=== PATIENT | female | born 1955 | race Caucasian/White ===

== ENCOUNTER 2016-10-04 05:27 | Observation (INO) | payer OTHER, MEDICAID ==
[~2016-10-04] VITALS: Ht 162.6 cm; Wt 103.5 kg
[~2016-10-04 05:27] MED LIST: ASPI-119 PO; ATOR10TA15 PO; BUPR75TA PO; BUSP10TA PO; CLON.5 PO; FERR325T8 PO; FLUO10TA PO; GABA100C4 PO; HUMU70IN SQ; ISOS60TA PO; LAMO100T PO; LEVO50TA4 PO; LISI-515 PO; METF500T4 PO; METO25TA3 PO; NOVOLOGP2 SQ; OMEP40CA2 PO; POTA8CAP PO; QUET5TAB PO; VITA2000 PO
[2016-10-04] MEDS ORDERED: metroNIDAZOLE 500 MG INJ 100 ML IV SCH (06:00)
[2016-10-04] MEDS ORDERED: HEPARIN SODIUM - SQ 10,000 UNITS/ML VIAL SQ SCH (06:00)
[2016-10-04] MEDS ORDERED: LEVOFLOXACIN 500 MG PREMIX INJ 100 ML IV SCH (06:00)
[2016-10-04] MEDS ORDERED: INSULIN HUMAN REGULAR 1,000 UNITS/10 ML VIAL SQ PRN (06:15)
[2016-10-04] MEDS ORDERED: METOPROLOL TARTRATE 25 MG TAB PO PRN (06:15)
[2016-10-04] MEDS ORDERED: POVIDONE IODINE 5% (ANTISEPSIS KIT) 4 APPLICATIONS EACH NARE PRN (06:15)
[2016-10-04] MEDS ORDERED: LACTATED RINGER'S 1000 ML IV PRN (06:15)
[2016-10-04] MEDS ORDERED: SODIUM CHLORID 0.9% 500 ML IV PRN (06:15)
[2016-10-04] MEDS ORDERED: CHLORHEXIDINE GLUCONATE 2 % 1 PACK (2 CLOTHS) TOPICAL PRN (06:15)
[2016-10-04 06:21] VITALS: BP 142/79; PULSE 77; RESP 18; TEMP 98.3; O2SAT 94
[2016-10-04] MEDS ORDERED: MIDAZOLAM HCL 2 MG/2 ML VIAL ONE (07:18)
[2016-10-04] MEDS ORDERED: ACETAMINOPHEN 1000 MG/100 ML VIAL IV ONE (07:18)
[2016-10-04] MEDS ORDERED: fentaNYL CITRATE 250 MCG/5 ML AMP ONE ×2 (07:18→10:50)
[2016-10-04] MEDS ORDERED: ARTIFICIAL TEARS OPTH OINT 3.5 APPLIC/3.5 GM TUBO ONE (07:18)
[2016-10-04] MEDS ORDERED: SUGAMMADEX SODIUM 200 MG/2 ML VIAL IV PUSH ONE ×2 (07:19)
[2016-10-04] MEDS ORDERED: HYDROmorphone HCL PF 2 MG/ML VIAL ONE (07:19)
[2016-10-04] MEDS ORDERED: APREPITANT 40 MG CAP ONE (07:19)
[2016-10-04] MEDS ORDERED: DEXAMETHASONE SOD PHOS 4 MG/ML VIAL ONE (07:19)
[2016-10-04] MEDS ORDERED: LIDOCAINE 1%/EPINEPHrine 1:100,000 SOLN 30 ML VIAL INFIL ONE (08:42)
[2016-10-04] MEDS ORDERED: SODIUM CHLORIDE 0.9% FLUSH 10 ML FLUSH IV FLUSH PRN (10:30)
[2016-10-04] MEDS ORDERED: ONDANSETRON HCL 4 MG/2 ML VIAL IVP PRN (10:30)
[2016-10-04] MEDS ORDERED: oxyCODONE/ACETAMINOPHEN 5 MG/325 MG TAB PO PRN (10:30)
[2016-10-04] MEDS ORDERED: KETOROLAC TROMETHAMINE 30 MG/ML (IVP) VIAL IVP SCH (10:30)
[2016-10-04] MEDS ORDERED: DO NOT ADM ANY ANTICOAGULANT DRUGS PRN (10:37)
[2016-10-04] MEDS: D5-1/2 NS + KCL 20 MEQ INJ 1,000 ML IV SCH (11:02)
[2016-10-04 11:27] LABS: AUTOMATED NEUTROPHIL # 4.5 TH/MM3 (1.8-7.7); BASOPHIL % 0.6 % (0.0-2.0); EOSINOPHIL # 0.1 TH/MM3 (0-0.4); EOSINOPHIL % 2.1 % (0.0-4.0); HEMATOCRIT 34.7 % (35.0-46.0); HEMO FLAGS DIFF FINAL; LYMPH % 13.7 % (9.0-44.0); LYMPHOCYTE # 0.8 TH/MM3 (1.0-4.8); MEAN CELL VOLUME 93.2 FL (80.0-100.0); MEAN CORPUSCULAR HEMOGLOBIN 31.3 PG (27.0-34.0); MEAN CORPUSCULAR HGB CONC 33.6 % (32.0-36.0); MONO % 4.1 % (0.0-8.0); NEUT % 79.5 % (16.0-70.0); PLATELET COUNT 147 TH/MM3 (150-450); RED BLOOD COUNT 3.73 MIL/MM3 (4.00-5.30); RED CELL DISTRIBUTION WIDTH 15.4 % (11.6-17.2); WHITE BLOOD COUNT 5.6 TH/MM3 (4.0-11.0)
[2016-10-04] MEDS ORDERED: *RESP: ALBUTEROL 2.5 MG/3 ML NEB (PRN) PERIprocedural Use ONLY NEB ONE (11:46)
[2016-10-04] MEDS ORDERED: PROPOFOL 200 MG/20 ML AMP IV ONE (12:00)
[2016-10-04] MEDS ORDERED: ePHEDrine/NS 25 MG/5 ML SYR IV ONE (12:00)
[2016-10-04] MEDS ORDERED: VECURONIUM BROMIDE 10 MG VIAL IV ONE (12:00)
[2016-10-04] MEDS ORDERED: KETOROLAC TROMETHAMINE 60 MG/2 ML (IM) VIAL IM ONE (12:00)
[2016-10-04] MEDS ORDERED: ONDANSETRON HCL 4 MG/2 ML VIAL IV PUSH ONE (12:00)
[2016-10-04] MEDS ORDERED: NORMOSOL R INJ 1,000 ML IV ONE (12:00)
[2016-10-04] MEDS ORDERED: PILL SPLITTER OTHER PRN (12:00)
[2016-10-04] MEDS ORDERED: PHENYLEPH/NS 1000 MCG/10 ML SYR IV ONE (12:00)
[2016-10-04] MEDS: INSULIN NovoLIN REGULAR SUPPLEMENTAL SCALE SQ SCH ×3 (12:49→22:52)
[2016-10-04] MEDS ORDERED: *LABETALOL HCL 100 MG/20 ML VIAL PERIprocedural Use ONLY ONE (13:02)
[2016-10-04 13:43] VITALS: BP 152/90; PULSE 92; RESP 20; TEMP 98.5; O2SAT 94
[2016-10-04] MEDS: oxyCODONE/ACETAMINOPHEN 5 MG/325 MG TAB PO PRN (14:44)
--- NOTE | 2016-10-04 16:13 | PD.ONC.PN ---
Subjective Subjective Remarks post op note pt is resting in bed she is teary eyed states she is going through a depression, she is under the care of Dr. Peck, psychiatrist in [place] She denies wanting to harm herself She states she was just given pain medication 1/2 hour ago for her abdominal pain she is eating jello and drinking coffee denies any n/v Objective Data Date Time Temp Pulse Resp B/P Pulse Ox O2 Delivery O2 Flow Rate FiO2 10/04/16 13:43 98.5 92 20 152/90 94 10/04/16 13:10 99.0 92 16 141/70 96 Nasal Cannula 3 10/04/16 13:00 92 20 176/86 95 Nasal Cannula 3 10/04/16 12:45 97 20 178/98 93 Nasal Cannula 3 10/04/16 12:30 88 14 175/96 92 Nasal Cannula 3 10/04/16 12:15 89 14 168/83 92 Nasal Cannula 3 10/04/16 12:00 90 12 168/91 97 Nasal Cannula 3 10/04/16 11:45 87 15 174/88 97 Nasal Cannula 3 10/04/16 11:30 88 15 173/81 96 Nasal Cannula 3 10/04/16 11:15 87 18 170/96 96 Simple Mask 6 10/04/16 11:00 86 15 168/89 95 Simple Mask 6 10/04/16 10:45 88 12 168/88 95 Simple Mask 6 10/04/16 10:36 98.0 90 12 145/65 95 Simple Mask 6 10/04/16 06:21 98.3 77 18 142/79 94 10/04/16 10/04/16 10/04/16 07:00 15:00 23:00 Intake Total 1947 ml Output Total 200 ml Balance 1747 ml Result Diagram: 10/04/16 1056 Laboratory Results Laboratory Tests Test 10/04/16 10/04/16 06:05 10:56 Blood Type A POSITIVE Antibody Screen NEGATIVE Blood Bank Comment White Blood Count 5.6 TH/MM3 Red Blood Count 3.73 MIL/MM3 Hemoglobin 11.7 GM/DL Hematocrit 34.7 % Mean Corpuscular Volume 93.2 FL Mean Corpuscular Hemoglobin 31.3 PG Mean Corpuscular Hemoglobin 33.6 % Concent Red Cell Distribution Width 15.4 % Platelet Count 147 TH/MM3 Mean Platelet Volume 10.2 FL Neutrophils (%) (Auto) 79.5 % Lymphocytes (%) (Auto) 13.7 % Monocytes (%) (Auto) 4.1 % Eosinophils (%) (Auto) 2.1 % Basophils (%) (Auto) 0.6 % Neutrophils # (Auto) 4.5 TH/MM3 Lymphocytes # (Auto) 0.8 TH/MM3 Monocytes # (Auto) 0.2 TH/MM3 Eosinophils # (Auto) 0.1 TH/MM3 Basophils # (Auto) 0.0 TH/MM3 CBC Comment DIFF FINAL Differential Comment Administered Medications Medications (Trade) Dose Ordered Sig/[place] Route PRN Reason Start Time Stop Time Status Last Admin Dose Admin Lactated Ringer's 1,000 ml @ 30 mls/hr Q24H PRN IV SEE LABEL COMMENTS 10/04/16 06:15 10/07/16 06:14 10/04/16 06:15 Potassium Chloride/Dextrose/ Sod Cl (D5-1/2 NS + KCl 20 Meq Inj) 1,000 ml @ 75 mls/hr [id number] IV 10/04/16 11:00 10/04/16 11:02 Oxycodone/ Acetaminophen (Percocet 5-325 Mg) 2 tab Q4H PRN PO PAIN SCALE 6 TO 10 10/04/16 10:30 10/04/16 14:44 Objective Remarks GENERAL: Well-nourished, well-developed patient. SKIN: Warm and dry. HEAD: Normocephalic. EYES: No scleral icterus. No injection or drainage. NECK: Supple, trachea midline CARDIOVASCULAR: Regular rate and rhythm without murmurs. RESPIRATORY: Breath sounds equal bilaterally. No accessory muscle use. GASTROINTESTINAL: SS are c/d/i mild ecchymosis to midline incision with mild swelling to site. EXTREMITIES: No cyanosis, or edema. teds and scds MUSCULOSKELETAL: Adequate muscle tone. NEUROLOGICAL: No obvious focal deficit. Awake, alert, and oriented x3. PSYCHIATRIC: teary eyed Assessment/Plan Problem List: (1) Post-operative state Status: Acute Plan: s/p RA lap for BSO and resection of pelvic masses frozen section appear benign orders per EMR continue to monitor abd, OK to get repeat H/H armas patent Percocet for pain d/c armas in am and anticipate d/c home tomorrow Geraldo Mendoza [facility] Oct 04, 2016 16:13
[2016-10-04 16:39] VITALS: O2SAT 92
[2016-10-04 16:49] VITALS: BP 170/87; PULSE 92; RESP 20; TEMP 99.1; O2SAT 93
[2016-10-04 19:23] VITALS: O2SAT 92
[2016-10-04] MEDS: METOPROLOL TARTRATE 25 MG TAB PO SCH (19:34)
[2016-10-04 20:35] VITALS: BP 156/81; PULSE 85; RESP 18; TEMP 97.5; O2SAT 94
[2016-10-04] MEDS ORDERED: QUEtiapine FUMARATE 25 MG TAB PO SCH (21:00)
[2016-10-04] MEDS ORDERED: GABAPENTIN 100 MG CAP PO SCH (21:00)
[2016-10-04] MEDS ORDERED: lamoTRIgine 100 MG TAB PO SCH (21:00)
[2016-10-04] MEDS: busPIRone HCL 10 MG TAB PO SCH (22:47)
[2016-10-04] MEDS: clonazePAM 0.5 MG TAB PO SCH (22:47)
[2016-10-04] MEDS: SODIUM CHLORIDE 0.9% FLUSH 10 ML FLUSH IV FLUSH SCH (22:47)
[2016-10-05] VITALS: BP 118/82; PULSE 80; RESP 17; TEMP 97.8; O2SAT 94
[2016-10-05] MEDS: D5-1/2 NS + KCL 20 MEQ INJ 1,000 ML IV SCH (00:48)
[2016-10-05 04:00] VITALS: BP 139/80; PULSE 70; RESP 18; TEMP 97.1; O2SAT 95
[2016-10-05] MEDS: oxyCODONE/ACETAMINOPHEN 5 MG/325 MG TAB PO PRN (05:40)
[2016-10-05] MEDS: INSULIN NovoLIN REGULAR SUPPLEMENTAL SCALE SQ SCH (05:48)
[2016-10-05] MEDS ORDERED: LEVOTHYROXINE SODIUM 50 MCG TAB PO SCH (06:00)
[2016-10-05 07:44] VITALS: O2SAT 96
[2016-10-05] MEDS: clonazePAM 0.5 MG TAB PO SCH (07:57)
[2016-10-05] MEDS: METOPROLOL TARTRATE 25 MG TAB PO SCH (07:57)
[2016-10-05 08:00] VITALS: BP 155/89; PULSE 68; RESP 18; TEMP 97.6; O2SAT 92
[2016-10-05] MEDS: SODIUM CHLORIDE 0.9% FLUSH 10 ML FLUSH IV FLUSH SCH (08:00)
[2016-10-05] MEDS: busPIRone HCL 10 MG TAB PO SCH (08:00)
[2016-10-05 08:01] LABS: AUTOMATED NEUTROPHIL # 4.7 TH/MM3 (1.8-7.7); BASOPHIL % 0.4 % (0.0-2.0); EOSINOPHIL # 0.1 TH/MM3 (0-0.4); EOSINOPHIL % 0.8 % (0.0-4.0); HEMATOCRIT 33.2 % (35.0-46.0); HEMO FLAGS DIFF FINAL; LYMPH % 17.3 % (9.0-44.0); LYMPHOCYTE # 1.1 TH/MM3 (1.0-4.8); MEAN CELL VOLUME 91.9 FL (80.0-100.0); MEAN CORPUSCULAR HEMOGLOBIN 31.1 PG (27.0-34.0); MEAN CORPUSCULAR HGB CONC 33.8 % (32.0-36.0); NEUT % 73.5 % (16.0-70.0); PLATELET COUNT 124 TH/MM3 (150-450); RED BLOOD COUNT 3.62 MIL/MM3 (4.00-5.30); RED CELL DISTRIBUTION WIDTH 15.2 % (11.6-17.2); WHITE BLOOD COUNT 6.5 TH/MM3 (4.0-11.0)
[2016-10-05 08:22] LABS: BICARBONATE 23.8 MEQ/L (21.0-32.0); POTASSIUM 3.4 MEQ/L (3.5-5.1)
[2016-10-05] MEDS ORDERED: OXYC1TAB63 PO (08:27)
[2016-10-05] MEDS ORDERED: POTASSIUM CHLORIDE 20 MEQ CONTROLLED RELEASE TAB PO ONE (08:30)
[2016-10-05] MEDS ORDERED: PANTOPRAZOLE SOD 40 MG DELAYED RELEASE TAB PO SCH (09:00)
[2016-10-05] MEDS ORDERED: ATORVASTATIN 10 MG TAB PO SCH (09:00)
[2016-10-05] MEDS ORDERED: GABAPENTIN 100 MG CAP PO SCH (09:00)
[2016-10-05] MEDS ORDERED: LISINOPRIL 20 MG TAB PO SCH (09:00)
[2016-10-05] MEDS ORDERED: ISOSORBIDE MONONITRATE 60 MG TAB PO SCH (09:00)
[2016-10-05] MEDS ORDERED: buPROPion HCL 75 MG TAB PO SCH (09:00)
--- NOTE | 2016-10-05 10:38 | MP ---
cc: JADYN FLORES MD DATE OF SURGERY 10/04/2016 PREOPERATIVE DIAGNOSIS 1. Right pelvic mass. 2. Status post prior hysterectomy. POSTOPERATIVE DIAGNOSIS Bilateral ovarian cyst adenofibromas. PROCEDURE Robotic-assisted laparoscopic bilateral salpingo-oophorectomy. SURGEON Jadyn Flores MD REGULATORY COMPLIANCE OFFICER [place] r[facility] first assistant ANESTHESIA General endotracheal anesthesia ESTIMATED BLOOD LOSS 50 cc IV FLUIDS 1800 cc URINE OUTPUT 30 cc HISTORY This is a 61-year-old female who remotely had a hysterectomy, found on exam and imaging to have complex adnexal mass approximately 5 cm thought to be arising from the right ovary. No overt evidence of metastatic disease. She was counseled regarding options. She was very much in favor of definitive surgical management and presents now for that endeavor. FINDINGS The right ovary partially retroperitonealized, adjacent and stuck to the right pelvic sidewall. Approximately 5 cm complex in appearance. The left tube and ovary had a similar appearance, but smaller perhaps 3 cm also stuck to the left pelvic sidewall. She had redundant large and small bowel, appeared chronically dilated to some extent, not focally, but diffusely. Peritoneal surfaces were smooth. No peritoneal implants. No obvious adenopathy. Preliminary pathology showed ovaries to represent probable cyst adenofibromas. No evidence of malignancy. MODIFIER/STATEMENT OF COMPLEXITY The case was increased due to her body habitus, weight of 103.6 kg which increased complexity of visibility in accomplishing surgical objectives. Modifier should be applied accordingly. PROCEDURE The patient taken to the operating room, placed in the dorsal lithotomy position after general endotracheal anesthesia was administered. A time-out was undertaken. She was identified by sight recognition and hospital ID bracelet and the proposed procedure was reviewed and confirmed. She was carefully positioned in padded John stirrups. Her arms were padded and secured to the sides. She was further secured to the operating table with egg crate padding and tape in a cross chest over the shoulder fashion. All sites noted to be properly aligned with no malalignments or pressure points. She was prepped in sterile fashion and draped. A Ardon catheter was placed. An orogastric tube was placed in the stomach on suction. With manual elevation of the abdominal wall and direct laparoscopic visualization, a 5-mm cannula was placed in the left upper quadrant and an atraumatic entry was confirmed as carbon dioxide gas was insufflated. A 12 mm cannula placed in the midline above the umbilicus. An 8 mm cannula was placed in the right upper quadrant and left lateral quadrant. The original 5 exchanged for an 8-mm cannula. She was placed in steep Trendelenburg position. Peritoneal washings were obtained for cytology. The anatomy was reviewed with findings as described above. The small bowel was folded back on its mesenteric root to the extent possible and three Ray-Janessa sponges were placed around the root of the small bowel mesentery. The robotic system brought into the operative field attached in the usual fashion. Monopolar scissors, fenestrated bipolar forceps and Prograsp manipulators placed in arms #1, #2 and #3 respectively and I took my place at the surgeon's console. The Ray-Janessa sponges and the flexible robotic arms using the Prograsp manipulators were used to help to assist in exposure which was challenging due to a large volume of markedly redundant bowel. The right retroperitoneal dissection was carried out lateral to the gonadal vessels. The residual right round ligament was isolated, cauterized and transected. The posterior dissection was carried out. The right ureter was identified. The right infundibulopelvic ligament was isolated as a window in the peritoneum was made immediately below the gonadal vessels adjacent to the ovary. The dissection was carried proximally elevating the gonadal vessels isolated them to the level of the pelvic brim where they were cauterized. Dissection was continued distally circumferentially to free the attachments and mobilize and partially retroperitonealize adnexa until the right utero-ovarian ligament was isolated. The utero-ovarian ligament was cauterized and transected. The remaining attachments to the round ligament were now transected as was the right gonadal vessels and the right tube and ovary were placed in the right pericolic gutter for later retrieval. Attention was directed toward the left side where a left retroperitoneal dissection was carried out. The bowel was mobilized. The retractors and lap pads were used to help mobilize the bowel. As the dissection was continued, the retroperitoneal allowed dissection to allow identification of the ureter and a window in the peritoneum was made immediately adjacent to the ovary below the gonadal vessels. The gonadal vessels were then dissected proximally as the intervening peritoneum was opened. The gonadal vessels were taken to the level of the pelvic brim where they were cauterized. The residual round ligament was isolated as the anterior and posterior leafs of the peritoneum were further opened and adhesions were taken down and the round ligament was cauterized. Dissection was continued circumferentially around the tube and ovary until the left utero-ovarian ligament remnant was identified and it was isolated, cauterized and transected. The round ligament was transected and the gonadal vessels were transected now removing the left tube and ovary, placed in the right pericolic gutter for later retrieval. Given the apparent benign appearance of these adnexa, it was felt that all reasonable surgical objectives had been completed. Pending frozen section analysis, the robotic instruments were removed. The robotic system was disengaged from the operative field. I reentered the bedside under sterile condition. A 12 cm EndoCatch bag was introduced. Both tubes and ovaries were placed in the bag, brought to the abdominal wall and removed through the incision and the fascia of that incision had been extended with blunt dissection. Each of the three Ray-Janessa sponges that had been placed were removed. Each were removed individually. Each were inspected and noted to be removed in their entirety and preliminary and final counts were correct. Inspection confirmed there were no remaining foreign objects in the peritoneal cavity. The 12-mm fascial defect was closed with interrupted 0 Vicryl sutures. There were some prominent dilation of abdominal wall vessels including a vessel that traversed through the abdominal incision. There was no active bleeding, but it was noted such that in addition to closing the fascia in the usual manner using 0 Vicryl sutures with a needle pass apparatus, a 0 Vicryl suture was placed transversely across the vessel both above and below the fascial incision and these were tied securely as well to help ensure continued hemostasis. Inspection confirmed complete hemostasis. Good reapproximation of that fascia. The carbon dioxide was removed and under pressure, there was no bleeding at all completely hemostatic from the site. The remaining cannulas were removed. Carbon dioxide gas was removed from the peritoneal cavity. 3-0 Vicryl subcutaneous, 3-0 Vicryl subcuticular, and Steri-Strips were used to close the skin incisions. Pelvic exam confirmed there were no remaining foreign objects in the vagina and final counts were correct. She was returned to dorsal supine position and was pending reversal of anesthesia when I left the operating room to precede her to the Post Anesthesia Care Unit. MD BULL Carrillo/JARROD Canchola: 10/04/2016/11:01 AM /10:19 AM
[2016-10-05 12:00] VITALS: BP 124/74; PULSE 73; RESP 18; TEMP 98.6; O2SAT 94
--- NOTE | 2016-10-06 09:02 | MD ---
cc: ISAAC GIBBONS KELLY L. MD ADMISSION DATE: 10/04/2016 DISCHARGE DATE: 10/05/2016 PROCEDURE 10/04/2016 robotic-assisted laparoscopic bilateral salpingo-oophorectomy. DIAGNOSIS Bilateral adnexal masses (preliminary pathology cystadenofibromas). HOSPITAL COURSE She did satisfactory in early hospital course. She is tolerating oral intake. Ardon catheter is removed pending voiding, hemodynamically stable. Ins and outs 2967/450+ voids. LABS H&H this morning 11.2 and 33.2, white count 6.5. Electrolytes potassium 3.4, BUN and creatinine of 22 and 1.43 (with baseline creatinine 1.27-1.35. PHYSICAL EXAMINATION She is alert, oriented x3 in no acute distress. At times, she is tearful. She states that she has been struggling with depression for 30 years and preexisting, nothing has changed in that regard. LUNGS: Clear. Mild rales at the bases. CARDIOVASCULAR: Regular rate and rhythm. ABDOMEN: Soft. Incision is clean and dry. Mild ecchymosis in the midline incision. EXTREMITIES: Nontender, SCD's intact. ASSESSMENT Postop day #1. Findings reviewed. I am encouraged by the fact that preliminary pathology suggests these masses are benign. I think that will help alleviate some of her anxiety as she was quite concerned about the possibility of cancer given her family history. I have also reassured her, I believe she is doing quite well in her postop recovery. I am pleased and I think she will be able to go home today. Activities and restrictions were again discussed. Questions were answered. She expressed good understanding and agreed. PLAN Therefore, anticipate discharge to home. She is to resume her prior medications. She will have a prescription for Percocet and she is to call our office to schedule follow up within approximately two weeks or at any time should she have any questions or problems between now the time of scheduled followup. MD BULL Carrillo/JARROD /8:34 AM /8:47 AM
== END 2016-10-05 13:14 | disposition home or self-care (01) ==
LOC: HSDC 05:27 → HSDI 10:26 → HOCA 13:27
PROVIDERS: ADMIT Obstetrics & Gynecology Gynecologic Oncology; ATTEND Obstetrics & Gynecology Gynecologic Oncology
PROC: 0UT74ZZ Resection of Bilateral Fallopian Tubes, Percutaneous Endoscopic Approach (ICD-10-PCS; 2016-10-04)
PROC: 0UT24ZZ Resection of Bilateral Ovaries, Percutaneous Endoscopic Approach (ICD-10-PCS; principal; 2016-10-04 07:33)
DX: D27.1 Benign neoplasm of left ovary (principal); D27.0 Benign neoplasm of right ovary; N83.8 Other noninflammatory disorders of ovary, fallopian tube and broad ligament; E11.9 Type 2 diabetes mellitus without complications; J44.9 Chronic obstructive pulmonary disease, unspecified; E03.9 Hypothyroidism, unspecified; I10 Essential (primary) hypertension; E78.5 Hyperlipidemia, unspecified; K21.9 Gastro-esophageal reflux disease without esophagitis; I25.10 Atherosclerotic heart disease of native coronary artery without angina pectoris; Z95.5 Presence of coronary angioplasty implant and graft; F32.9 Major depressive disorder, single episode, unspecified; E66.9 Obesity, unspecified; Z68.39 Body mass index [BMI] 39.0-39.9, adult; Z87.891 Personal history of nicotine dependence; D64.9 Anemia, unspecified; Z79.899 Other long term (current) drug therapy; Z79.84 Long term (current) use of oral hypoglycemic drugs; Z79.82 Long term (current) use of aspirin; Z79.4 Long term (current) use of insulin
CPT/HCPCS: 00840; 58661; 80048; 82948; 85025; 86850; 86900; 86901; 88112; 88307; 88331; 88332; 94150; 94664; G0378; J0131; J1100; J1170; J1644; J1885; J1956; J2250; J2370; J2405; J3010; J3480; J7120; J7613; J8501; 88305